=== PATIENT | female | born 1995 | race Two or more races ===

== ENCOUNTER 2018-12-31 22:06 | Emergency (ER) | payer OTHER ==
[~2018-12-31] VITALS: Ht 160 cm; Wt 65.8 kg
--- NOTE | 2018-12-31 22:29 | PHYS DOC ---
Past Medical History Past Medical History: Hypothyroid (YOKASTA CROOK DO) Past Surgical History: No Surgical History (YOKASTA CROOK DO) Additional Information: Nonsmoker Alcohol Use: Occasionally Drug Use: None (YOKASTA CROOK DO) Adult General Chief Complaint Chief Complaint: SHOULDER INJURY HPI HPI Patient is a 23 year old female presents to the ED complaining of left shoulder injury 30 minutes ago. Patient went to get her mom a glass of water and states she slipped in the kitchen and fell and caught her left shoulder on a chair. Describes the pain as sharp. Rates the pain as 8 out 10. Patient has decreased range of motion due to pain. Denies head/neck injury, LOC, vision changes, nausea/vomiting, dizziness, weakness, chest pain or shortness of breath. (DENI FARAH) Review of Systems Review of Systems Constitutional: Denies fever or chills [] Eyes: Denies change in visual acuity, redness, or eye pain [] HENT: Denies nasal congestion or sore throat [] Respiratory: Denies cough or shortness of breath [] Cardiovascular: No additional information not addressed in HPI [] GI: Denies abdominal pain, nausea, vomiting, bloody stools or diarrhea [] : Denies dysuria or hematuria [] Musculoskeletal: Complains of left shoulder pain. Denies back pain. [] Integument: Denies rash or skin lesions [] Neurologic: Denies headache, focal weakness or sensory changes [] All other systems were reviewed and found to be within normal limits, except as documented in this note. (DENI FARAH) Current Medications Current Medications Current Medications Medications (Trade) Dose Ordered Sig/Sveta Start Time Stop Time Status Last Admin Dose Admin Etomidate (Amidate) 10 mg 1X ONCE 12/31/18 23:00 12/31/18 23:09 DC 12/31/18 23:17 10 MG Fentanyl Citrate (Fentanyl 2ml Vial) 100 mcg 1X ONCE 12/31/18 23:00 12/31/18 23:09 DC 12/31/18 23:16 100 MCG Sodium Chloride 1,000 ml @ 1,000 mls/hr 1X ONCE 12/31/18 23:00 12/31/18 23:59 DC 12/31/18 23:16 1,000 MLS/HR (YOKASTA CROOK DO) Allergies Allergies Allergies Coded Allergies Type Severity Reaction Last Updated Verified No Known Drug Allergies 12/31/18 No (YOKASTA CROOK DO) Physical Exam Physical Exam Constitutional: Well developed, well nourished, no acute distress, non-toxic appearance. [] HENT: Normocephalic, atraumatic Eyes: PERRLA, EOMI, conjunctiva normal, no discharge. [] Neck: Normal range of motion, no tenderness, supple, no stridor. [] Cardiovascular:Heart rate regular rhythm, no murmur [] Lungs & Thorax: Bilateral breath sounds clear to auscultation [] Skin: Warm, dry, no erythema, no rash. [] Back: No tenderness, no CVA tenderness. [] Extremities: Left anterior shoulder dislocation. Moderate tenderness, no cyanosis, no clubbing, ROM intact, no edema. [] Neurologic: Alert and oriented X 3, normal motor function, normal sensory function, no focal deficits noted. [] Psychologic: Affect normal, judgement normal, mood normal. [] (DENI FARAH) Physical Exam Constitutional: Well developed, well nourished, no acute distress, non-toxic appearance HENT: Normocephalic, atraumatic, oropharynx moist, nose normal Eyes: Conjunctiva normal, no discharge Neck: Normal range of motion, no tenderness, supple, no meningeal signs Cardiovascular: Heart rate normal and regular rhythm Lungs & Thorax: Bilateral breath sounds clear to auscultation, no respiratory distress Extremities: Left shoulder dimpling consistent for anterior shoulder dislocation; distal pulse and sensation intact. No edema Neurologic: Alert and oriented X 3, no focal deficits noted (YOKASTA CROOK DO) Current Patient Data Vital Signs Vital Signs Date Time Temp Pulse Resp B/P (MAP) Pulse Ox O2 Delivery O2 Flow Rate FiO2 01/01/19 00:30 78 134/79 (97) 98 Room Air 12/31/18 23:45 2.0 12/31/18 23:20 98.2 13 16 (YOKASTA CROOK DO) Lab Values Laboratory Tests Test 12/31/18 22:28 POC Urine HCG, Qualitative Hcg negative (Negative) (YOKASTA CROOK DO) Lab Values Laboratory Tests Test 12/31/18 22:28 POC Urine HCG, Qualitative Hcg negative (Negative) (DENI FARAH) EKG EKG [] (DENI FARAH) Radiology/Procedures Radiology/Procedures []PROCEDURE: SHOULDER 2+V LEFT Left shoulder AP and scapular x-rays 2 views HISTORY: Left shoulder injury. FINDINGS: There is an anterior subcoracoid humeral head dislocation. No fracture evident. No distraction of the acromioclavicular joint evident. IMPRESSION: Anterior humeral head dislocation. PROCEDURE: SHOULDER 2+V LEFT Left shoulder AP and scapular x-rays 2 views HISTORY: Postreduction left shoulder FINDINGS: Since the prior exam there has been reduction of the left humeral head. No current dislocation evident. No fracture evident. Soft tissues unremarkable. IMPRESSION: Reduction of the humeral head dislocation since the prior study. (DENI FARAH) Course & Med Decision Making Course & Med Decision Making Pertinent Labs and Imaging studies reviewed. (See chart for details) [] Patient had shoulder dislocation on exam. Reduction performed by Dr. Crook. Patient tolerated well. No complications. Shoulder immobilizer placed. Discussed symptomatic treatment and follow-up with orthopedics outpatient. Provided contact information/education. Discussed reasons to return to the ED. Patient understands and agrees with plan. (DENI FARAH) Dragon Disclaimer Dragon Disclaimer This electronic medical record was generated, in whole or in part, using a voice recognition dictation system. (DENI FARAH) Departure Departure Impression: Primary Impression: Shoulder dislocation Disposition: 01 HOME, SELF-CARE Condition: IMPROVED Referrals: SIMBA CHAPMAN MD Patient Instructions: Shoulder Dislocation MODERATE SEDATION ASSESSMENT* RISKS/ALTERNATIVES Risks/Alternatives Risks and alternatives of this type of sedation and procedure discussed with: RISK/ALTERNATIVES: Patient (YOKASTA CROOK DO) H & P ON CHART H & P H & P on chart and reviewed for co-morbid conditions and appropriate labs. H&P ON CHART: Yes (YOKASTA CROOK DO) STATUS PREG STATUS ASSESSED: Yes (YOKASTA CROOK DO) MEDS/ALLERGIES REVIEWED Meds/Allergies Reviewed Medications and Allergies including time and route of recently administered narcotics and sedatives. MEDS/ALLERGIES REVIEWED: Yes (YOKASTA CROOK DO) ASA RATING ASA RATING: I (YOKASTA CROOK DO) AIRWAY ASSESSMENT Airway Assessment Airway patency, oral function limitations, presence of caps, crowns, dentures, partials, and ability to extend neck assessed. AIRWAY ASSESSMENT: Yes (YOKASTA CROOK DO) MALLAMPATI SCORE MALLAMPATI SCORE: II (YOKASTA CROOK DO) PRE-SEDATION ASSESSMENT PRE-SEDATION ASSESSMENT: Yes (YOKASTA CROOK DO) Splinting Splinting : Location: Left shoulder Pre-Made Type: Pre-Proc Neuro Vasc Exam: normal Post-Proc Neuro Vasc Exam: normal, unchanged from pre-exam (YOKASTA CROOK DO) Joint Reduction Joint Reduction : Joint Reduction Site: shoulder (L) Conscious Sedation: Yes Reduction Attempts: 1 Pre-Procedure NV Exam: Yes Post-Procedure NV Exam: Yes Post Joint Reduction Film: joint reduced (no fracture) Progress Procedural Sedation/Analgesia Plan of Sedation IV Sedation/Analgesia I have completed a re-assessment immediately before sedation/analgesia administration, and the patient remains a candidate for the planned procedure and choice of sedation/analgesia. Procedure: Performed by ED physician Sedation Time: 10 minutes Consent/Setup: Verified correct patient, Informed consent provided, No pt Hx adverse reaction, Consent from patient, Time-out performed, Hand hygiene observed, Head of bed at 30-60 deg Indication Fracture reduction Preparation: desk monitor applied, Pulse oximeter applied, Constant attend ance, IV access established, Eval last meal time, Supplemental oxygen, Procedure explained, Suction available, End tidal CO2 mon applied VS Prior to Procedure: O2 saturation normal, Blood pressure normal, Heart Rate normal, Respiratory rate normal Mallampati: Class & Anatomy Visible 2:top tonsil/uvula/palate ASA Classification: 1 Airway Exam: Normal facial anatomy, Normal neck anatomy CVS/Resp Exam: Normal breath sounds, Normal heart sounds Neuro Exam: Alert, Responsive Sedation Sedation: Etomidate (10mg), Analgesia: Fentanyl (100mcg) Response During Procedure: Handled secretions adeq, Maintained airway well, Oxygenation stable, Sedation appropriate Complications During/After: None Reversal: None required Mental Status After Procedure: Alert, Oriented X3, At patient's baseline Post-Procedure: Alert prior to discharge, Ambulatory with assist, Pt rtn pre- proc baseline Attestation: I performed procedure, I performed sedation and pushed the Etomidate (YOKASTA CROOK DO) Attending Signature Attending Signature I have personally interviewed and examined the patient. All charts, labs, and imaging studies were reviewed. I agree with the PA/SAFETY SPEC's findings, exam, and plan. (YOKASTA CROOK DO) DENI FARAH Dec 31, 2018 22:29 YOKASTA CROOK DO Jan 04, 2019 16:30
[2018-12-31] MEDS ORDERED: ETOMIDATE 20 MG/10 ML VIAL. IV ONE (23:00)
[2018-12-31] MEDS ORDERED: fentaNYL PF VIAL 100 MCG/2 ML VIAL IV ONE (23:00)
[2018-12-31] MEDS ORDERED: IV NORMAL SALINE 1000ML BAG 1,000 ML IV ONE (23:00)
--- NOTE | 2018-12-31 23:08 | RAD ---
Left shoulder AP and scapular x-rays 2 views HISTORY: Left shoulder injury. FINDINGS: There is an anterior subcoracoid humeral head dislocation. No fracture evident. No distraction of the acromioclavicular joint evident. IMPRESSION: Anterior humeral head dislocation. Electronically signed by: Mahamed Eugene MD (12/31/2018 11:05 PM) [facility]
[2018-12-31 23:20] VITALS: BP 165/87
--- NOTE | 2018-12-31 23:41 | RAD ---
Left shoulder AP and scapular x-rays 2 views HISTORY: Postreduction left shoulder FINDINGS: Since the prior exam there has been reduction of the left humeral head. No current dislocation evident. No fracture evident. Soft tissues unremarkable. IMPRESSION: Reduction of the humeral head dislocation since the prior study. Electronically signed by: Mahamed Eugene MD (12/31/2018 11:38 PM) [facility]
[2019-01-01 00:30] VITALS: BP 134/79
--- NOTE | 2019-01-15 09:45 | NUR ---
Late entry made to Medical Record. IV Stop time transcribed from eMAR to IV spreadsheet
== END 2019-01-01 00:43 | disposition home or self-care (01) ==
LOC: MERGE 22:06 → ER 22:06
DX: S43.015A Anterior dislocation of left humerus, initial encounter (principal); E03.9 Hypothyroidism, unspecified; W01.0XXA Fall on same level from slipping, tripping and stumbling without subsequent striking against object, initial encounter; Y93.89 Activity, other specified; Y92.090 Kitchen in other non-institutional residence as the place of occurrence of the external cause; Y99.8 Other external cause status
CPT/HCPCS: 23650; 73030; 81025; 99285; J3010; J7030; 99152

== ENCOUNTER 2021-08-13 09:11 | Emergency (ER) | payer OTHER ==
[~2021-08-13] VITALS: Ht 160 cm; Wt 84.1 kg
[2021-08-13] MEDS ORDERED: HYDROcodone/APAP 5/325MG 1 TAB TABLET PO ONE (09:30)
--- NOTE | 2021-08-13 09:36 | PHYS DOC ---
Past Medical History Past Surgical History: No Surgical History General Adult EDM: Chief Complaint: SHOULDER INJURY HPI: HPI: Patient is a 26 year old female who presents with eating into her car today when she slipped on some ice and still had a hold of the door with the left arm and heard a pop in the shoulder. She states this is the same shoulder that was dislocated previously when she was in her teens after she slipped and fell on some water. Patient states she cannot fully move at the shoulder. She states is very painful. It is tender. She rates her pain a 10 out of 10. She did not take any pain medication prior to coming. Patient medical history is hypothyroidism and the previously dislocated left shoulder. Denies hitting her head, LOC, numbness or tingling, focal weakness, back pain, extremity pain, joint pain other than her shoulder. Review of Systems: Review of Systems: Constitutional: Denies fever or chills. [] Eyes: Denies change in visual acuity. [] HENT: Denies nasal congestion or sore throat. [] Respiratory: Denies cough or shortness of breath. [] Cardiovascular: Denies chest pain or edema. [] GI: Denies abdominal pain, nausea, vomiting, bloody stools or diarrhea. [] : Denies dysuria. [] Musculoskeletal: Denies back pain or + left shoulder joint pain. [] Integument: Denies rash. [] Neurologic: Denies headache, focal weakness or sensory changes. [] Endocrine: Denies polyuria or polydipsia. [] Lymphatic: Denies swollen glands. [] Psychiatric: Denies depression or anxiety. [] Heart Score: C/O Chest Pain: No Allergies: Allergies: Allergies Coded Allergies Type Severity Reaction Last Updated Verified No Known Drug Allergies 08/04/15 No Physical Exam: PE: Constitutional: Well developed, well nourished, no acute distress, non-toxic appearance. [] HENT: Normocephalic, atraumatic, bilateral external ears normal, oropharynx moist, no oral exudates, nose normal. [] Eyes: PERRLA, EOMI, conjunctiva normal, no discharge. [] Neck: Normal range of motion, no tenderness, supple, no stridor. [] Cardiovascular:Heart rate regular rhythm, no murmur [] Lungs & Thorax: Bilateral breath sounds clear to auscultation [] Abdomen: Bowel sounds normal, soft, no tenderness, no masses, no pulsatile masses. [] Skin: Warm, dry, no erythema, no rash. [] Back: No tenderness, no CVA tenderness. [] Extremities: Left anterior shoulder tenderness, no cyanosis, no clubbing, left shoulder ROM not intact, 1+ edema. [] Neurologic: Alert and oriented X 3, normal motor function, normal sensory function, no focal deficits noted. [] Psychologic: Affect normal, judgement normal, mood normal. [] Current Patient Data: Vital Signs: Vital Signs Date Time Temp Pulse Resp B/P (MAP) Pulse Ox O2 Delivery O2 Flow Rate FiO2 08/13/21 09:12 98.3 70 18 115/51 (72) 100 Room Air 98.3 EKG: EKG: [] Radiology/Procedures: Radiology/Procedures: [] Impression: [facility] [address] [place], [place] [id number] IMAGING REPORT Signed PATIENT: EZRA PARKER DACCOUNT: [id number] : 1995 LOCATION: ER AGE: 26 SEX: F EXAM STATUS: PRE ER ORD. PHYSICIAN: DAVID MENSAH APRN REASON: slipped and fell, heard pop, previously dislocated PROCEDURE: SHOULDER 2+V LEFT EXAM: Left shoulder, 3 views. HISTORY: Fall. COMPARISON: None. FINDINGS: 3 views of the left shoulder obtained. There is no fracture, dislocation or subluxation. IMPRESSION: No acute osseous finding. Electronically signed by: Coral Renee MD (08/13/2021 9:52 AM) [id number] DICTATED and SIGNED BY: CORAL RENEE MD DATE: 08/13/21 [id number] Course & Med Decision Making: Course & Med Decision Making Pertinent Labs and Imaging studies reviewed. (See chart for details) See HPI. Left shoulder has no deformity seen but there is tenderness anteriorly. 1+. Radial pulse present. Cap refil less than 2 seconds. Full sensations intact. When patient tries to move at the shoulder joint the whole shoulder moves. [] Dragon Disclaimer: Dragon Disclaimer: This electronic medical record was generated, in whole or in part, using a voice recognition dictation system. Departure Departure Impression: Primary Impression: Shoulder pain, left Qualified Codes: M25.512 - Pain in left shoulder Disposition: HOME / SELF CARE / HOMELESS Condition: STABLE Referrals: NO PCP (PCP) VILLA GALLAGHER Jr. DO Patient Instructions: Shoulder Pain Additional Instructions: Follow up with primary care provider or the orthopedic as I have referred you too. Wear the shoulder immobilizer until you follow up. Take medication as prescribed and with food. Remember that these medications can make you sleepy, so you should not drive or drink on these medications. Scripts Cyclobenzaprine Hcl (CYCLOBENZAPRINE HCL) 5 Mg Tablet 1 TAB PO TID, #21 TAB Prov: DAVID MENSAH APRN 08/13/21 Hydrocodone Bit/Acetaminophen (HYDROCODONE-APAP 5-325 ) 1 Tab Tablet 1 TAB PO PRN Q6HRS PRN for PAIN, #10 TAB 0 Refills Prov: DAVID MENSAH APRN 08/13/21 DAVID MENSAH APRN Aug 13, 2021 09:35
--- NOTE | 2021-08-13 09:55 | RAD ---
EXAM: Left shoulder, 3 views. HISTORY: Fall. COMPARISON: None. FINDINGS: 3 views of the left shoulder obtained. There is no fracture, dislocation or subluxation. IMPRESSION: No acute osseous finding. Electronically signed by: Coral Hoffman MD (08/13/2021 9:52 AM) [id number]
[2021-08-13 09:58] VITALS: BP 118/64
[2021-08-13] MEDS ORDERED: CYCL5TAB PO (10:03)
[2021-08-13] MEDS ORDERED: HYDR-2761 PO (10:03)
== END 2021-08-13 10:15 | disposition home or self-care (01) ==
LOC: ER 09:11
DX: M25.512 Pain in left shoulder (principal); G89.11 Acute pain due to trauma; W00.0XXA Fall on same level due to ice and snow, initial encounter; Y93.89 Activity, other specified; Y92.89 Other specified places as the place of occurrence of the external cause; Y99.8 Other external cause status
CPT/HCPCS: 73030; 81025; 99284; A4565